=== PATIENT | female | born 1970 | race Caucasian/White ===

== ENCOUNTER 2020-11-15 16:46 | Emergency (ER) | payer BC, SELFPAY ==
--- NOTE | 2020-11-15 16:52 | XR_ITS ---
PROCEDURE: XR SHOULDER RT MIN 2V CLINICAL INDICATION: pain COMPARISON: No exams were available for comparison FINDINGS: No fracture or dislocation. No lytic or blastic change. There is normal mineralization. The joint spaces are well-preserved. No significant degenerative/arthritic changes. No erosive changes evident. Other findings:None. IMPRESSION: No acute findings. Dictated by: Denys Roldan MD 11/15/2020 17:44 Denys Roldan MD in [place] 11/15/2020 17:44
--- NOTE | 2020-11-15 17:01 | XR_ITS ---
PROCEDURE: XR SCAPULA RT CLINICAL INDICATION: pain COMPARISON: No exams were available for comparison FINDINGS: No fracture or dislocation. No lytic or blastic change. There is normal mineralization. The joint spaces are well-preserved. No significant degenerative/arthritic changes. No erosive changes evident. Other findings:None. IMPRESSION: No acute findings. Dictated by: Denys Roldan MD 11/15/2020 17:44 Denys Roldan MD in [place] 11/15/2020 17:44
[2020-11-15 17:03] VITALS: BP 155/89; PULSE 79; RESP 20; TEMP 36.7; O2SAT 97; BMI 24.3
--- NOTE | 2020-11-15 17:07 | HMH.EDUTC ---
[facility] [place] Clinical Impression: Muscle spasm Disposition: Home, Self-Care Condition on Discharge: Good Instructions: Cyclobenzaprine, DI for Muscle Spasm Additional Instructions: *Etodolac lesly 6 hours with meal as needed for pain/inflammation *Not additional anti-inflammatory like motrin, aleve, advil with the above amount of Etodolac. You can still take Tylenol every 4 hours as needed if you need something else for pain *Ice 20 minutes every 2 hours for the first 48 hours after the initial injury followed by moist heat every 20 minutes 3-4 times a day to affected area *Muscle relaxer every 8 hours as needed for muscle spasms but remember, it WILL cause drowsiness You cannot take it and drive, operate machinery or care for small children. *Keep this area active, no movement leads to more stiffness, However take it easy and avoid heavy lifting pushing or pulling *Follow up with you family doctor if no improvement for further treatment Prescriptions: Etodolac [Etodolac 200mg Cap*] 200 mg PO Q6H PRN #20 cap PRN Reason: Moderate Pain Transmission Status: Received by [id number] Cyclobenzaprine HCl [Flexeril 10mg tablet] 5 mg PO TID PRN #30 tab PRN Reason: Muscle Spasm Transmission Status: Received by [id number] Referrals: PCP,No [Primary Care Provider] - As needed Forms: Work/School Release Time of Disposition: 17:54 Medical Decision Making - Brody Inquiry Pt receiving controlled substance: No Brody was queried for this patient: No Vital Signs: 11/15/20 17:03 11/15/20 18:08 Temperature 98.1 F 98 F Temperature Source Oral Pulse Rate 75 Pulse Rate [Right] 79 Respiratory Rate 20 16 Blood Pressure 150/81 H Blood Pressure [Right Arm] 155/89 H Blood Pressure Mean [Right Arm] 111 Blood Pressure Source [Right Arm] Automatic Cuff Blood Pressure Position [Right Arm] Sitting 02 Sat by Pulse Oximetry 97 Oxygen Delivery Method Room Air - Radiology Data #1 Image(s): Shoulder Image Reviewed: Yes I have reviewed radiologist's interpretation Preliminary Findings: No Fracture Seen No acute findings #2 Image(s): Other (scapula) Image Reviewed: Yes I have reviewed radiologist's interpretation Preliminary Findings: No Fracture Seen No acute findings [facility] [place] - General Stated complaint: Pain in R Shoulder Time Seen by Provider: 11/15/20 17:07 Mode of Arrival: Ambulatory Source of Information: Patient Limitations: No Limitations Description of Symptoms (Recalled from Triage Doc. by RN): pt states a few days ago she coughed and started having sharp R shoulder pain. it radiates about half way down her arm. pt is also having tremmors in the affected arm. HEENT Symptoms (Recalled from RN notes): No Resp Symptoms (Recalled from RN notes): No Skin Symptoms (Recalled from RN notes): No MS Symptoms (Recalled from RN notes): Yes (R shoulder pain with right arm spasms) Functional Status (Recalled from RN notes): na - History of Present Illness Provider Complaint: Patient states that she has a smokers cough, states that a couple days ago she was reaching for something and she coughed and felt something pull in her right shoulder area blade area States that ever since she has been having muscle spasm like pain in her right shoulder that is worse with movment and at times shoots down her right upper arm States that when pain hits she sometimes shakes from the pain States that she has been taking back and body medication and it helped some but today she was having spasms again so she came in to get checked - Related Data Previous Rx's Medication Instructions Recorded Cyclobenzaprine HCl [Flexeril 10mg 5 mg PO TID PRN #30 tab 11/15/20 tablet] Etodolac [Etodolac 200mg Cap*] 200 mg PO Q6H PRN #20 cap 11/15/20 Allergies Allergy/AdvReac Type Severity Reaction Status Date / Time No Known Allergies Allergy Verified 11/15/20 17:07 - Worker's Comp Is this a Worker's Co
[2020-11-15 18:08] VITALS: BP 150/81; PULSE 75; RESP 16; TEMP 36.6
== END 2020-11-15 18:10 | disposition home or self-care (01) ==
PROVIDERS: Emergency Provider Nurse Practitioner
DX: M62.838 Other muscle spasm (principal); M25.511 Pain in right shoulder; F17.210 Nicotine dependence, cigarettes, uncomplicated
CPT/HCPCS: 73010; 73030; 99202; G0463